=== PATIENT | female | born 1985 | race Caucasian/White ===

== ENCOUNTER 2016-02-23 02:31 | Emergency (ER) | payer MEDICAID ==
[2016-02-23 02:51] VITALS: TEMP 97.7; BMI 24.5
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
[2016-02-23 04:00] VITALS: BP 146/58; PULSE 98
== END 2016-02-23 03:58 | disposition home or self-care (01) ==
LOC: ED 02:31
DX: S63.619A Unspecified sprain of unspecified finger, initial encounter (principal); W01.0XXA Fall on same level from slipping, tripping and stumbling without subsequent striking against object, initial encounter; Y93.9 Activity, unspecified
CPT/HCPCS: 99283